=== PATIENT | female | born 1955 | race Caucasian/White ===

== ENCOUNTER 2021-05-01 07:23 | Day surgery (SDC) | payer OTHER ==
[2021-04-30 09:35] VITALS: BMI 27.1
[2021-05-01] MEDS ORDERED: SODIUM CHLORIDE 0.9% P/F 10 ML VIAL IJ ONE (08:15)
[2021-05-01] MEDS ORDERED: BUPIVACAINE HCL/PF 0.5% (5MG/ML) 10 ML VIAL ONE (08:15)
[2021-05-01] MEDS ORDERED: BUPIVACAINE LIPOSOME/PF (EXPAREL) 266 MG/20 ML VIAL ONE (08:15)
[2021-05-01] MEDS ORDERED: MIDAZOLAM HCL 2 MG/2 ML SINGLE DOSE VIAL ONE ×2 (08:15→10:04)
[2021-05-01] MEDS ORDERED: PROPOFOL 20 ML ONE ×5 (10:01→12:37)
[2021-05-01] MEDS ORDERED: ceFAZolin SODIUM 1 GM VIAL ONE (10:08)
[2021-05-01] MEDS ORDERED: TRANEXAMIC ACID 1000 MG/10 ML VIAL ONE (10:09)
[2021-05-01] MEDS ORDERED: ONDANSETRON 4 MG/2 ML VIAL ONE ×2 (10:13→11:50)
[2021-05-01] MEDS ORDERED: DEXAMETHASONE SOD PHOSPHATE 4 MG/1 ML VIAL ONE ×2 (10:13→11:50)
[2021-05-01] MEDS ORDERED: PHENYLEPHRINE HCL 10 MG/1 ML SINGLE DOSE VIAL ONE (10:32)
[2021-05-01] MEDS ORDERED: CEFAZOLIN 2 GM in DEXTROSE 5%-WATER - 50 ML IVPB ONE (11:55)
[2021-05-01] MEDS ORDERED: TRANEXAMIC ACID 1000 MG/10 ML VIAL IVPUSH ONE (11:55)
[2021-05-01] MEDS ORDERED: ONDANSETRON 4 MG/2 ML VIAL IVPUSH PRN ×2 (11:58→12:55)
[2021-05-01] MEDS ORDERED: KETOROLAC TROMETHAMINE 30 MG/1 ML VIAL ONE (12:33)
[2021-05-01] MEDS ORDERED: MAG HYDROX/AL HYDROX/SIMETH 30 ML UNIT-DOSE CUP PO PRN (12:55)
[2021-05-01] MEDS ORDERED: MAGNESIUM HYDROX 2400MG/30ML ORAL SUSPENSION 30 ML CUP PO PRN (12:55)
[2021-05-01] MEDS ORDERED: LACTATED RINGERS SOLUTION 1,000 ML IV SCH (13:00)
[2021-05-01] MEDS ORDERED: ACETAMINOPHEN 1000 MG/100 ML VIAL (NON FORMULARY) IVPB ONE (13:00)
[2021-05-01] MEDS ORDERED: ACETAMINOPHEN INJECTION 100 ML IVPB ONE (13:03)
[2021-05-01] MEDS ORDERED: oxyCODONE HCL 5 MG TABLET ONE (14:11)
[2021-05-01] MEDS: oxyCODONE HCL 5 MG TABLET PO PRN ×3 (14:18→21:15)
[2021-05-01] MEDS: LACTATED RINGERS SOLUTION 1,000 ML IV SCH (14:46)
[2021-05-01] MEDS: CEFAZOLIN 2 GM/D5W 2 GM/50 ML ML IVPB SCH (17:56)
[2021-05-01] MEDS: ACETAMINOPHEN 500 MG TABLET (FP) PO SCH (21:13)
[2021-05-01] MEDS: FAMOTIDINE 20 MG TABLET PO SCH (21:14)
[2021-05-01] MEDS: SENNOSIDES/DOCUSATE COMBO (SENNA PLUS) TABLET (UD) PO SCH (21:14)
[2021-05-01] MEDS: CELECOXIB 200 MG CAPSULE PO SCH (21:14)
[2021-05-01] MEDS ORDERED: ASPIRIN COATED 81 MG TABLET.EC PO SCH (22:00)
[2021-05-02] MEDS: oxyCODONE HCL 5 MG TABLET PO PRN ×5 (00:09→12:38)
[2021-05-02] MEDS: CEFAZOLIN 2 GM/D5W 2 GM/50 ML ML IVPB SCH (03:13)
[2021-05-02] MEDS: ACETAMINOPHEN 500 MG TABLET (FP) PO SCH ×3 (03:13→14:08)
[2021-05-02] MEDS ORDERED: ENOXAPARIN NA (PORCINE) 40 MG/0.4 ML DISP.SYRIN SQ ONE (08:00)
[2021-05-02 08:10] LABS: HEMATOCRIT 32.8 % (32.4-45.2); HEMOGLOBIN 11.1 GM/dl (10.7-15.3); MCH 30.2 pg (25.7-33.7); MCHC 33.8 g/dl (32.0-36.0); MEAN CELL VOLUME 89.4 fl (80-96); MEAN PLT VOLUME 9.3 fl (7.5-11.1); PLATELET COUNT 280 10^3/uL (134-434); RBC 3.68 M/mm3 (3.60-5.2); RDW 12.2 % (11.6-15.6); WHITE BLOOD COUNT 12.5 K/mm3 (4.0-10.8)
[2021-05-02 08:20] LABS: CALCIUM 8.8 mg/dl (8.5-10); CREATININE 0.6 mg/dl (0.55-1.3)
[2021-05-02] MEDS: SENNOSIDES/DOCUSATE COMBO (SENNA PLUS) TABLET (UD) PO SCH (09:44)
[2021-05-02] MEDS: CELECOXIB 200 MG CAPSULE PO SCH (09:44)
[2021-05-02] MEDS: FAMOTIDINE 20 MG TABLET PO SCH (09:44)
[2021-05-02] MEDS ORDERED: MULTIVITAMINS (DAILY MVI) TABLET (FP) PO SCH (10:00)
[2021-05-02] MEDS ORDERED: ASPIRIN COATED 81 MG TABLET.EC PO SCH (10:00)
[2021-05-02] MEDS: LACTATED RINGERS SOLUTION 1,000 ML IV SCH (12:40)
[2021-05-02 14:15] VITALS: BP 112/63; PULSE 79; TEMP 98.1
== END 2021-05-02 14:39 | disposition home or self-care (01) ==
LOC: FASU 07:23 → FM/S 15:20 → FASU 05-02 14:39
PROVIDERS: ATTEND Orthopaedic Surgery
PROC: 0SRD0J9 Replacement of Left Knee Joint with Synthetic Substitute, Cemented, Open Approach (ICD-10-PCS; principal; 2021-05-01 10:42)
DX: M17.12 Unilateral primary osteoarthritis, left knee (principal); M24.562 Contracture, left knee
CPT/HCPCS: 27447; C1776; 36415; 73560-TC-LT-FY; 80048; 85027; 94760; 97010-GP; 97116-GP; 97162-GP; J0131